=== PATIENT | female | born 1950 | race Caucasian/White ===

== ENCOUNTER → 2017-05-02 | Outpatient (CLI) | payer OTHER ==
--- NOTE | 2017-05-02 15:03 | MG ---
HISTORY: Right breast lump, history of right breast cancer with lumpectomy Comparison: 07/28/2015 Diagnostic bilateral mammogram FINDINGS: Bilateral CC and MLO projections of the right and left breast were obtained. Scattered fibroglandula r tissue is seen to be present. A lumpectomy scar is present at approximately the 6 o'clock position of the right breast. There is associated dense dystrophic calcification associated with fat necrosis at the lumpectomy site. Focal skin retraction is noted associated with the lumpectomy. No mammographi c abnormality is identified corresponding to the patient's right breast lump. Targeted sonography of the right breast demonstrates a subtle hypoechoic ovoid focus located at the 2 o'clock position and c orresponding to the patient's lump. The hypoechoic ovoid structure measures 1.3 cm x 0.4 cm x 0.8 cm x 0.5 cm. No associated posterior shadowing or vascularity is identified. This could represent focal scar formation or possible intramammary lymph node. However, short interval mammographic and sonograp hic follow-up in 3-6 months is recommended in order to document stability. No significant architectur al distortion, mass or clustered microcalcifications can be observed to suggest malignancy. No skin thickening or nipple retraction is appreciated. No pathological lymphadenopathy can be identified. IMPRESSION: 1. No mammographic abnormality identified corresponding to the patient's right breast lump. However, there is a subtle hypoechoic structure visualized on targeted sonography of the right breast, possibl y representing focal scar formation or possible intramammary lymph node. However, short interval mamm ographic and sonographic follow-up in 3-6 months is recommended. ACR CATEGORY 3 - probably benign finding; short interval follow-up suggested Diagnostic right mammogram and targeted sonogram recommended in 3-6 months Diagnostic CAD was utilized and reviewed. * 0 (ZERO) - ASSESSMENT INCOMPLETE; ADDITIONAL IMAGING IS NEEDED. * / (ONE) - NEGATIVE. * 2/II (TWO) - BENIGN FINDINGS. * 3/III (THREE) - PROBABLY BENIGN FINDING; SHORT INTERVAL FOLLOW-UP SUGGESTED. * 4/IV (FOUR) - SUSPICIOUS ABNORMALITY; BIOPSY SHOULD BE CONSIDERED. * 5/V - HIGHLY SUSPICIOUS OF MALIGNANCY; BIOPSY SHOULD BE PERFORMED. A NEGATIVE X-RAY REPORT SHOULD NOT DELAY BIOPSY IF A DOMINANT OR CLINICALLY SUSPICIOUS MASS IS PRESENT; 4 TO 8 PERCENT OF CANCERS ARE NOT IDENTIFIED BY X-RAY. A NEGA TIVE REPORT MAY REINFORCE THE CLINICAL IMPRESSION. ADENOSIS AND DENSE BREASTS MAY OBSCURE AN UNDERLY ING NEOPLASM. Reported By:
--- NOTE | 2017-05-02 15:04 | US ---
HISTORY: Right breast lump, history of right breast cancer with lumpectomy Study: Right breast sonogram Comparison: Diagnostic mammogram performed on same day Technique: Multiple grayscale and color flow images of the right breast were obtained. Findings: Imaging of the right breast demonstrates no suspicious soft tissue nodule or mass. However, there is a subtle ovoid hypoechoic structure located at the 2 o'clock position and corresponding to the patien t's palpable lump. PA ovoid hypoechoic structure measures approximately 12 mm x 4 mm by 8 mm x 5 mm i n greatest dimensions. There is no associated posterior shadowing or internal vascularity. This hypoe choic structure could represent focal scar formation or possible intramammary lymph node. However, sh ort interval mammographic and sonographic follow-up in 3-6 months is recommended. IMPRESSION: 1. Benign-appearing hypoechoic ovoid structure corresponding to patient's palpable lump within the ri ght breast. Please see above discussion, and please see diagnostic mammogram report. Reported By:
== END ==
LOC: RAD 13:10
PROVIDERS: ATTEND Nurse Practitioner Family
DX: N63.12 Unspecified lump in the right breast, upper inner quadrant (principal)
CPT/HCPCS: 76642; 77066